=== PATIENT | female | born 1965 | race Hispanic/Latino ===

== ENCOUNTER → 2020-04-28 | Outpatient (CLI) | payer OTHER ==
[~2020-04-28] MED LIST: COVID-19 VACC, MRNA(MODERNA)/PF 100 MCG/0.5 ML VIAL IM ONE
== END ==
LOC: VACCPMC 17:00
DX: Z23 Encounter for immunization (principal); Z20.828 Contact with and (suspected) exposure to other viral communicable diseases

== ENCOUNTER → 2020-06-05 | Outpatient (CLI) | payer OTHER | END | DRG 951 | LOC: VACCPMC 08:31 | DX: Z23 Encounter for immunization (principal); Z20.822 Contact with and (suspected) exposure to COVID-19 | CPT/HCPCS: 0012A; 91301 ==

== ENCOUNTER → 2020-06-26 | Outpatient (CLI) | payer OTHER | LOC: MAMMO 16:29 | PROVIDERS: ATTEND Student in an Organized Health Care Education/Training Program | DX: Z12.31 Encounter for screening mammogram for malignant neoplasm of breast (principal); M85.9 Disorder of bone density and structure, unspecified | CPT/HCPCS: 77067; 77080 ==

== ENCOUNTER → 2020-08-24 | Day surgery (SDC) | payer OTHER ==
[~2020-08-24] MED LIST changes: +ALLEGRA-D 24 H1 EACH PO; -COVID-19 VACC, MRNA(MODERNA)/PF 100 MCG/0.5 ML VIAL IM ONE; +IRON PO; +LIBRAX CAPSULE1 EACH PO; +MOBIC7.5 MG PO; +POVIDONE IODINE 0.05% 0.05 % ML PO ONE; +PROPOFOL IV EMULSION 10 MG/ML 20 ML VIAL ONE; +SOMA350 MG PO; +VIT B12 INJ
[2020-08-24 15:15] VITALS: BP 113/78
== END | disposition home or self-care (01) ==
LOC: OR 11:08
PROVIDERS: ATTEND Internal Medicine Gastroenterology
DX: Z12.11 Encounter for screening for malignant neoplasm of colon (principal); K58.9 Irritable bowel syndrome, unspecified; K64.1 Second degree hemorrhoids; Z98.84 Bariatric surgery status; Z71.3 Dietary counseling and surveillance; D64.9 Anemia, unspecified; E66.01 Morbid (severe) obesity due to excess calories; Z88.0 Allergy status to penicillin; Z01.810 Encounter for preprocedural cardiovascular examination; Z01.812 Encounter for preprocedural laboratory examination; Z20.822 Contact with and (suspected) exposure to COVID-19
CPT/HCPCS: 45378; 93005; J2704; U0002

== ENCOUNTER 2021-04-21 19:19 | Emergency (ER) | payer OTHER ==
[~2021-04-21] VITALS: Ht 162.6 cm; Wt 108.9 kg
[~2021-04-21 19:19] MED LIST changes: -POVIDONE IODINE 0.05% 0.05 % ML PO ONE; -PROPOFOL IV EMULSION 10 MG/ML 20 ML VIAL ONE
[2021-04-21] MEDS ORDERED: LEVOFLOXACIN500 MG PO (21:57)
== END 2021-04-21 23:00 | disposition home or self-care (01) ==
LOC: FSED 20:11
DX: J32.9 Chronic sinusitis, unspecified (principal); Z20.822 Contact with and (suspected) exposure to COVID-19; Z79.899 Other long term (current) drug therapy
CPT/HCPCS: 99283; U0002

== ENCOUNTER → 2021-06-04 | Outpatient (CLI) | payer BC ==
[~2021-06-04] MED LIST changes: +LEVOFLOXACIN500 MG PO
== END ==
LOC: MRI 13:15
PROVIDERS: ATTEND Physical Medicine & Rehabilitation Pain Medicine
DX: M54.16 Radiculopathy, lumbar region (principal); M54.12 Radiculopathy, cervical region
CPT/HCPCS: 72141; 72146; 72148

== ENCOUNTER → 2021-11-09 | Outpatient (CLI) | payer BC | LOC: MAMMO 16:25 | PROVIDERS: ATTEND Student in an Organized Health Care Education/Training Program | DX: Z12.31 Encounter for screening mammogram for malignant neoplasm of breast (principal) | CPT/HCPCS: 77067 ==

== ENCOUNTER → 2021-12-23 | Day surgery (SDC) | payer BC ==
[~2021-12-23] MED LIST changes: +BUPIVACAINE 0.25% 30ML SDV ONE; +FENTANYL CITRATE/PF 100MCG/2 ML INJ ONE; +IOPAMIDOL 200 MG/ML 20 ML VIAL IT ONE; +LIDOCAINE HCL 1% LOCAL INJ 20 ML VIAL ONE; +LOMOTIL TABLET1 EACH PO; +MIDAZOLAM HCL 2 MG/2 ML VIAL ONE; +MULTI-VITAMIN1 EACH PO; +OS-CAL 500+D T1 EACH PO; +POVIDONE IODINE 0.05% 0.05 % ML PO ONE; +PROPOFOL IV EMULSION 10 MG/ML 20 ML VIAL ONE; +VITAMIN D3125 MCG PO
[2021-12-23 07:05] VITALS: BP 124/85
== END | disposition home or self-care (01) ==
LOC: OR 05:37
PROVIDERS: ATTEND Physical Medicine & Rehabilitation Pain Medicine
DX: M47.896 Other spondylosis, lumbar region (principal); M47.894 Other spondylosis, thoracic region; M47.892 Other spondylosis, cervical region; M41.9 Scoliosis, unspecified; Z88.6 Allergy status to analgesic agent; Z88.0 Allergy status to penicillin; Z01.810 Encounter for preprocedural cardiovascular examination
CPT/HCPCS: 64493; 64494; 64495; 93005; J2250; J2704; J3010; Q9967; 77003; J2001

== ENCOUNTER → 2022-01-27 | Day surgery (SDC) | payer BC ==
[~2022-01-27] MED LIST changes: -FENTANYL CITRATE/PF 100MCG/2 ML INJ ONE; +LIDOCAINE HCL 1% 30ML-PF VIAL ONE; -LIDOCAINE HCL 1% LOCAL INJ 20 ML VIAL ONE; -MIDAZOLAM HCL 2 MG/2 ML VIAL ONE; -POVIDONE IODINE 0.05% 0.05 % ML PO ONE; +PROBIOTIC250 MG PO; -PROPOFOL IV EMULSION 10 MG/ML 20 ML VIAL ONE; +ROBAXIN PO
[2022-01-27 07:50] VITALS: BP 126/79
== END | disposition home or self-care (01) ==
LOC: OR 05:36
PROVIDERS: ATTEND Physical Medicine & Rehabilitation Pain Medicine
DX: M47.896 Other spondylosis, lumbar region (principal); M47.892 Other spondylosis, cervical region; M41.82 Other forms of scoliosis, cervical region; M41.84 Other forms of scoliosis, thoracic region; K58.9 Irritable bowel syndrome, unspecified; Z88.5 Allergy status to narcotic agent; Z88.0 Allergy status to penicillin; Z98.84 Bariatric surgery status
CPT/HCPCS: 64493; 64494; 64495; 77003; J2001; Q9967

== ENCOUNTER → 2022-03-08 | Outpatient (CLI) | payer BC ==
[~2022-03-08] MED LIST changes: -BUPIVACAINE 0.25% 30ML SDV ONE; -IOPAMIDOL 200 MG/ML 20 ML VIAL IT ONE; -LIDOCAINE HCL 1% 30ML-PF VIAL ONE
== END ==
LOC: US 12:57
PROVIDERS: ATTEND Family Medicine
DX: R94.6 Abnormal results of thyroid function studies (principal)
CPT/HCPCS: 76536

== ENCOUNTER → 2022-03-10 | Day surgery (SDC) | payer BC ==
[~2022-03-10] MED LIST changes: +BUPIVACAINE 0.25% 30ML SDV ONE; +IOPAMIDOL 200 MG/ML 20 ML VIAL IT ONE; +LIDOCAINE HCL 2% LOCAL INJ 5 ML SDV VIAL INJ ONE; +POVIDONE IODINE 0.05% 0.05 % ML PO ONE; +PROPOFOL IV EMULSION 10 MG/ML 20 ML VIAL ONE
[2022-03-10 08:17] VITALS: BP 106/78
== END | disposition home or self-care (01) ==
LOC: OR 06:26
PROVIDERS: ATTEND Physical Medicine & Rehabilitation Pain Medicine
DX: M47.892 Other spondylosis, cervical region (principal); M47.812 Spondylosis without myelopathy or radiculopathy, cervical region; M47.896 Other spondylosis, lumbar region; M46.1 Sacroiliitis, not elsewhere classified; M41.84 Other forms of scoliosis, thoracic region; M41.82 Other forms of scoliosis, cervical region; K58.9 Irritable bowel syndrome, unspecified; Z88.0 Allergy status to penicillin; Z88.6 Allergy status to analgesic agent; Z79.1 Long term (current) use of non-steroidal anti-inflammatories (NSAID); Z79.899 Other long term (current) drug therapy
CPT/HCPCS: 64490; 64491; 64492; 77003; J2001; J2704; Q9967

== ENCOUNTER → 2022-03-17 | Day surgery (SDC) | payer BC ==
[~2022-03-17] MED LIST changes: +LIDOCAINE HCL 1% 30ML-PF VIAL ONE; -LIDOCAINE HCL 2% LOCAL INJ 5 ML SDV VIAL INJ ONE; +MIDAZOLAM HCL 2 MG/2 ML VIAL ONE
[2022-03-17 08:15] VITALS: BP 114/81
== END | disposition home or self-care (01) ==
LOC: OR 05:42
PROVIDERS: ATTEND Physical Medicine & Rehabilitation Pain Medicine
DX: M47.892 Other spondylosis, cervical region (principal); M47.896 Other spondylosis, lumbar region; M41.9 Scoliosis, unspecified; M46.1 Sacroiliitis, not elsewhere classified; Z88.6 Allergy status to analgesic agent; Z88.0 Allergy status to penicillin; Z79.1 Long term (current) use of non-steroidal anti-inflammatories (NSAID)
CPT/HCPCS: 64490; 64491; 64492; J2001; J2250; J2704; Q9967; 77003